=== PATIENT | female | born 1940 | race Native Hawaiian/Other Pacific Islander ===

== ENCOUNTER 2018-06-30 11:00 | Outpatient (CLI) | payer OTHER | END 2018-06-30 19:34 | disposition home or self-care (01) | LOC: MAMMO 11:00 | DX: Z12.31 Encounter for screening mammogram for malignant neoplasm of breast (principal) ==

== ENCOUNTER 2018-08-01 12:43 | Outpatient (CLI) | payer OTHER | END 2018-08-01 19:24 | disposition home or self-care (01) | LOC: RAD 12:43 | DX: J01.01 Acute recurrent maxillary sinusitis (principal); Z13.820 Encounter for screening for osteoporosis; Z23 Encounter for immunization; M81.0 Age-related osteoporosis without current pathological fracture ==